=== PATIENT | female | born 1980 | race Caucasian/White ===

== ENCOUNTER 2021-12-23 06:38 | Day surgery (SDC) | payer OTHER ==
[~2021-12-23] VITALS: Ht 167.6 cm; Wt 103.1 kg
[2021-12-23] VITALS (10 sets, daily range): BP systolic 109–134; BP diastolic 51–82; PULSE 49–85; TEMP 97.4–98.6
[2021-12-23] MEDS ORDERED: MOTRIN 800800 MG/TAB PO (07:09)
[2021-12-23] MEDS ORDERED: PERCOCET 325 MG1 TA2 PO (07:10)
--- NOTE | 2021-12-23 11:30 | NUR ---
Pt arrived on unit via bed from PACU. Report received. Care assumed. Oriented to room, bed and call light within reach. Plan of care reviewed.
--- NOTE | 2021-12-23 16:45 | NUR ---
Pt up to the rocking chair with stand-by assistance and without complications.
[2021-12-24] VITALS: BP 111/56; PULSE 60; TEMP 98.5
[2021-12-24 05:30] VITALS: BP 106/54; PULSE 80; TEMP 98.3
[2021-12-24 09:00] VITALS: BP 132/65; PULSE 80; TEMP 98
--- NOTE | 2021-12-24 10:28 | NUR ---
Initial visit; Patient thanked Wirer Helper for looking in on her and offering God's blessings.
--- NOTE | 2021-12-24 10:45 | NUR ---
Discharge instructions and follow up care reviewed with pt. Pt verbalized an understanding, agreed with the plan and states no questions or concerns at this time.
== END 2021-12-24 11:00 | disposition home or self-care (01) ==
LOC: SDCO 06:38 → EDBD 08:30 → OB 11:56 → SDCO 12-24 11:00
PROVIDERS: Obstetrics & Gynecology
DX: N80.0 Endometriosis of uterus (principal); N83.8 Other noninflammatory disorders of ovary, fallopian tube and broad ligament; N92.0 Excessive and frequent menstruation with regular cycle; N94.6 Dysmenorrhea, unspecified; R93.89 Abnormal findings on diagnostic imaging of other specified body structures
CPT/HCPCS: OP; A4314; J0690; J1170; J1885; J2405; J2704; J2710; J3010; J7120